=== PATIENT | female | born 1955 ===

== ENCOUNTER 2018-09-19 02:00 | Emergency (ER) | payer MEDICARE, MEDICAID ==
[2018-09-19 02:12] VITALS: TEMP 97.9
--- NOTE | 2018-09-19 03:19 | ED PDOC ---
HPI: Psych/Substance Abuse Time Seen by Provider: 09/19/18 02:26 Chief Complaint (Nursing): Substance Abuse Chief Complaint (Provider): Substance Abuse History Per: Patient History/Exam Limitations: no limitations Onset/Duration Of Symptoms: Hrs (x6 hours ago ) Additional Complaint(s): Clara Powers is a 62 year old female with a history of depression and hypertension, who presents to the emergency department for a medical evaluation. Patient states she has depression and that she takes seroquel. She further reports of taking a dose last night before going to sleep at approximately 21:00 and states she woke up and forgot she took her medication and took another tab and started to have palpitations, prompting her to come into the ED. Patient has no headache or chest pain and did not take any other medications. PMD: Jack Starks Past Medical History Reviewed: Historical Data, Nursing Documentation, Vital Signs Vital Signs: Last Vital Signs Temp 97.9 F 09/19/18 02:10 Pulse 100 H 09/19/18 02:10 Resp 18 09/19/18 02:10 BP 133/87 09/19/18 02:10 Pulse Ox 99 09/19/18 02:10 - Medical History PMH: Depression, Diabetes, HTN, Hypercholesterolemia - Surgical History Surgical History: No Surg Hx - Family History Family History: States: Unknown Family Hx - Home Medications Home Medications: Ambulatory Orders Medication Instructions Recorded Ondansetron ODT [Zofran ODT] 4 mg PO Q8 PRN #12 odt 08/07/14 Acetaminophen with Codeine 1 tab PO Q6 PRN #20 tab 08/26/14 [Tylenol with Codeine No. 3 300 mg-30 mg] Meclizine HCl 1 tab PO Q6 PRN #20 tab 05/05/15 Ondansetron ODT [Zofran ODT] 4 mg PO Q6H PRN #16 odt 05/05/15 - Allergies Allergies/Adverse Reactions: Allergies Allergy/AdvReac Type Severity Reaction Status Date / Time No Known Allergies Allergy Verified 05/04/15 22:05 Review of Systems ROS Statement: Except As Marked, All Systems Reviewed And Found Negative Cardiovascular: Positive for: Palpitations. Negative for: Chest Pain Neurological: Negative for: Headache Physical Exam - Reviewed Nursing Documentation Reviewed: Yes Vital Signs Reviewed: Yes - Physical Exam Appears: Positive for: Non-toxic, No Acute Distress Head Exam: Positive for: ATRAUMATIC, NORMOCEPHALIC Skin: Positive for: Normal Color, Warm, Dry Eye Exam: Positive for: Normal appearance, EOMI, PERRL Neck: Positive for: Normal, Painless ROM, Supple Cardiovascular/Chest: Positive for: Regular Rate, Rhythm. Negative for: Murmur Respiratory: Positive for: Normal Breath Sounds. Negative for: Respiratory Distress Gastrointestinal/Abdominal: Positive for: Normal Exam, Soft. Negative for: Tenderness Back: Positive for: Normal Inspection. Negative for: L CVA Tenderness, R CVA Tenderness, Vertebral Tenderness Extremity: Positive for: Normal ROM Neurologic/Psych: Positive for: Alert, Oriented (x3) - ECG ECG Rhythm: Positive for: Normal QRS, Normal ST Segment, Sinus Rhythm (normal) Rate: 100 O2 Sat by Pulse Oximetry: 99 (RA) Pulse Ox Interpretation: Normal - Progress Re-evaluation Time: 04:45 Condition: Re-examined, Improved Medical Decision Making Medical Decision Making: Initial Time: 02:34 Initial Impression: Palpitations and incorrect dosing of seroquel Initial Plan: --administrative assistant receptionist --EKG --Reassess Scribe Attestation: Documented by Jonnathan Kim, acting as a scribe for Carli Madrigal MD. Provider Scribe Attestation: All medical record entries made by the Scribe were at my direction and personally dictated by me. I have reviewed the chart and agree that the record accurately reflects my personal performance of the history, physical exam, medical decision making, and the department course for this patient. I have also personally directed, reviewed, and agree with the discharge instructions and disposition. Disposition - Clinical Impression Clinical Impression: Palpitations, Medication adverse effect - Patient ED Disposition Is Patient to be Admitted: No Doctor Will See Patient In The: Office Counseled Patient/Family Regarding: Studies Performed, Diagnosis, Need For Followup - Disposition Referrals: [facility] [Outside] Disposition: Routine/Home Disposition Time: 04:45 Condition: GOOD Additional Instructions: CLARA POWERS, thank you for letting us take care of you today. Your provider was Carli Madrigal MD and you were treated for TOOK TWO MANY PILLS. The emergency medical care you received today was directed at your acute symptoms. If you were prescribed any medication, please fill it and take as directed. It may take several days for your symptoms to resolve. Return to the Emergency Department if your symptoms worsen, do not improve, or if you have any other problems. Please contact your doctor or call one of the physicians/clinics you have been referred to that are listed on the Patient Visit Information form that is included in your discharge packet. Bring any paperwork you were given at discharge with you along with any medications you are taking to your follow up visit. Our treatment cannot replace ongoing medical care by a primary care provider outside of the emergency department. [facility]. If you had an X-Ray or CT scan: A Radiologist will review the ED reading if any change in treatment is needed we will contact you. If you had a blood, urine, or wound culture: It will take several days for the results, if any change in treatment is needed we will contact you. If you had an STI test: It will take 48 hours for the results. Please call after 1 week if you have not heard back. Instructions: Palpitations, Medication Safety, Adult
[2018-09-19 04:51] VITALS: BP 103/64; PULSE 91; RESP 17; O2SAT 97
--- NOTE | 2018-09-19 06:55 | CARD ---
APPROVED REPORT Date of service: 09/19/2018 EKG Measurement Heart [id number] <Conclusion> Normal sinus rhythm Cannot rule out small or absent R waves V1-V3, may be due to lead placement or possible septal infarct age undetermined. Abnormal ECG
== END 2018-09-19 04:50 | disposition home or self-care (01) ==
LOC: H.ER 02:00
DX: R00.2 Palpitations (principal); T88.7XXA Unspecified adverse effect of drug or medicament, initial encounter